=== PATIENT | female | born 1975 | race Caucasian/White ===

== ENCOUNTER 2016-10-20 05:56 | Day surgery (SDC) | payer OTHER ==
[~2016-10-20] VITALS: Ht 165.1 cm; Wt 69.9 kg
[~2016-10-20 05:56] MED LIST: CYMB1CAP4 PO; FISH1000 PO; LIPI10TA PO; LOES1TAB9 PO
[2016-10-20] MEDS ORDERED: LR 1,000 ML IV ONE (06:15)
[2016-10-20 06:35] LABS: MEAN CORPUSCULAR HGB CONC 35.2 g/dl (32.0-36.5); MEAN CORPUSCULAR VOLUME 88.1 fl (80.0-96.0); RED CELL DISTRIBUTION WIDTH 12.1 % (11.5-14.5); WHITE BLOOD COUNT 11.9 K/mm3 (4.0-10.0)
[2016-10-20] MEDS ORDERED: EMLA CREAM 5GM (LIDOCAINE/PRILOCAINE) As Ordered ONE (06:42)
[2016-10-20 06:43] LABS: CONTROL LINE HCG INT CTR LINE PRESENT
[2016-10-20] MEDS ORDERED: XANA0.5T PO (06:52)
[2016-10-20] MEDS ORDERED: KETOROLAC 60 MG/2 ML VIAL (J1885) As Ordered ONE (07:15)
[2016-10-20] MEDS ORDERED: ONDANSETRON 4MG/2ML VIAL (J2405) As Ordered ONE (07:15)
[2016-10-20] MEDS ORDERED: LIDOCAINE 2% INJ 100 MG/5 ML SDV (FOR ANES.) As Ordered ONE (07:15)
[2016-10-20] MEDS ORDERED: PROPOFOL 200 MG/20 ML VIAL As Ordered ONE (07:15)
[2016-10-20] MEDS ORDERED: dexameTHASONE 4 MG/ML 1ML VIAL (J1100) As Ordered ONE (07:15)
[2016-10-20] MEDS ORDERED: MIDAZOLAM INJ 2 MG/2 ML VIAL (J2250) As Ordered ONE ×2 (07:18→07:19)
[2016-10-20] MEDS ORDERED: fentaNYL 100 MCG/2 ML INJECTION (J3010) As Ordered ONE (07:18)
[2016-10-20] MEDS ORDERED: LIDOCAINE W/EPINEPHRINE 1% 20ML VIAL As Ordered ONE (07:22)
[2016-10-20] MEDS ORDERED: IODINE STRONG SOLN 15 ML BTL As Ordered ONE (07:22)
[2016-10-20] MEDS ORDERED: fentaNYL 100 MCG/2 ML INJECTION (J3010) IV PRN (08:45)
[2016-10-20] MEDS ORDERED: NORCO, ANEXSIA 5/325MG TABLET (HYDROcodone/ACETAMINOPHEN) PO PRN (08:45)
[2016-10-20] MEDS ORDERED: ONDANSETRON 4MG/2ML VIAL (J2405) IV PRN (08:45)
[2016-10-20] MEDS ORDERED: LR 1,000 ML IV SCH ×2 (08:45→09:00)
[2016-10-20 09:30] VITALS: BP 131/77
== END 2016-10-20 09:35 | disposition home or self-care (01) ==
LOC: M SDC 05:56
PROVIDERS: ATTEND Obstetrics & Gynecology
DX: N87.9 Dysplasia of cervix uteri, unspecified (principal); E78.5 Hyperlipidemia, unspecified; F32.9 Major depressive disorder, single episode, unspecified; R01.1 Cardiac murmur, unspecified; M54.2 Cervicalgia; F41.9 Anxiety disorder, unspecified; Z79.899 Other long term (current) drug therapy
CPT/HCPCS: 36415; 57461; 84703; 85027; 86850; 86900; 86901; 88307; J1100; J1885; J2250; J2405; J3010

== ENCOUNTER 2017-03-08 06:07 | Inpatient (IN) | payer OTHER ==
[2017-03-08] MEDS ORDERED: EMLA CREAM 5GM (LIDOCAINE/PRILOCAINE) As Ordered (06:37)
[2017-03-08 06:38] LABS: HEMATOCRIT 40.2 % (36.0-47.0); HEMOGLOBIN 13.7 g/dl (12.0-16.0); MEAN CORPUSCULAR HEMOGLOBIN 29.7 pg (27.0-33.0); MEAN CORPUSCULAR HGB CONC 34.1 g/dl (32.0-36.5); MEAN CORPUSCULAR VOLUME 87.2 fl (80.0-96.0); PLATELET COUNT, AUTOMATED 331 10^3/uL (150-450); RED BLOOD COUNT 4.61 10^6/uL (4.00-5.40); RED CELL DISTRIBUTION WIDTH 12.2 % (11.5-14.5); WHITE BLOOD COUNT 13.2 10^3/uL (4.0-10.0)
[2017-03-08] MEDS: EMLA CREAM 5GM (LIDOCAINE/PRILOCAINE) TOP (06:40)
[2017-03-08] MEDS ORDERED: LIDOCAINE 1% MDV 20ML VIAL SC (06:45)
[2017-03-08 06:52] LABS: CONTROL LINE HCG INT CTR LINE PRESENT; HCG, SERUM QUALITATIVE NEGATIVE (NEGATIVE)
[2017-03-08] MEDS: LR 1,000 ML IV ×4 (07:01→23:45)
[2017-03-08] MEDS ORDERED: fentaNYL 100 MCG/2 ML INJECTION (J3010) As Ordered ×2 (07:04)
[2017-03-08] MEDS ORDERED: MIDAZOLAM INJ 2 MG/2 ML VIAL (J2250) As Ordered (07:04)
[2017-03-08] MEDS ORDERED: METOCLOPRAMIDE INJ 10MG/2ML VIAL (J2765) As Ordered (07:07)
[2017-03-08] MEDS ORDERED: ROCURONIUM BROMIDE 50 MG/5 ML VIAL As Ordered (07:07)
[2017-03-08] MEDS ORDERED: LIDOCAINE 2% INJ 100 MG/5 ML SDV (FOR ANES.) As Ordered (07:07)
[2017-03-08] MEDS ORDERED: KETOROLAC 60 MG/2 ML VIAL (J1885) As Ordered (07:07)
[2017-03-08] MEDS ORDERED: PROPOFOL 200 MG/20 ML VIAL As Ordered (07:07)
[2017-03-08] MEDS ORDERED: dexameTHASONE 4 MG/ML 1ML VIAL (J1100) As Ordered (07:07)
[2017-03-08] MEDS ORDERED: ONDANSETRON 4MG/2ML VIAL (J2405) As Ordered (07:08)
[2017-03-08] MEDS ORDERED: SCOPOLAMINE 1MG TRANSDERMAL PATCH As Ordered (07:16)
[2017-03-08] MEDS: SCOPOLAMINE 1MG TRANSDERMAL PATCH TOP (07:20)
[2017-03-08] MEDS: CEFAZOLIN SOD 1 GM in APPROPRIATE DILUENT 1 EA IV (07:58)
[2017-03-08] MEDS ORDERED: HYDROmorphone HCL 2 MG/ML 1ML VIAL (J1170) As Ordered (08:32)
[2017-03-08] MEDS ORDERED: NEOSTIGMINE 10 MG/10 ML VIAL (J2710) As Ordered (09:13)
[2017-03-08] MEDS ORDERED: GLYCOPYRROLATE INJ 0.2 MG/ML 2 ML VIAL As Ordered (09:13)
[2017-03-08] MEDS: METHYLENE BLUE 0.5% (5MG/ML) 10 ML AMP (PROVAYBLUE)(Q9968 PER 1MG) As Ordered (09:18)
[2017-03-08] MEDS: BUPIVACAINE HCL 0.25% 30 ML VIAL As Ordered (09:34)
[2017-03-08] MEDS ORDERED: fentaNYL 100 MCG/2 ML INJECTION (J3010) IV (10:15)
[2017-03-08] MEDS ORDERED: ONDANSETRON 4MG/2ML VIAL (J2405) IV ×2 (10:15→11:45)
[2017-03-08] MEDS ORDERED: PROMETHAZINE 25 MG SUPP PR (11:45)
[2017-03-08] MEDS ORDERED: PERCOCET 5MG/325MG TAB PO (11:45)
[2017-03-08] MEDS: KETOROLAC 30 MG/ML VIAL (J1885) IV ×2 (13:54→19:07)
[2017-03-08] MEDS: PERCOCET 5MG/325MG TAB PO ×2 (14:18→21:49)
[2017-03-08] MEDS: DOCUSATE SODIUM 100 MG CAP PO ×2 (14:24→21:48)
[2017-03-08] MEDS: OMEGA-3 1050MG CAPSULE PO (21:47)
[2017-03-08] MEDS: DULoxetine 20 MG CAP (CYMBALTA) PO (21:47)
[2017-03-09] MEDS: KETOROLAC 30 MG/ML VIAL (J1885) IV ×2 (01:36→07:31)
[2017-03-09] MEDS: LR 1,000 ML IV (03:40)
[2017-03-09 07:17] LABS: BASO % 0.2 % (0.0-1.0); EOS % 0.1 % (0.0-3.0); HEMATOCRIT 33.7 % (36.0-47.0); IMMATURE GRANULOCYTE # 0.1 10^3/uL (0-0); IMMATURE GRANULOCYTE % 0.4 % (0-0); LYMPH # 4.3 10^3/uL (1.5-4.5); LYMPH % 24.4 % (24.0-44.0); MEAN CORPUSCULAR HEMOGLOBIN 29.4 pg (27.0-33.0); MEAN CORPUSCULAR HGB CONC 33.5 g/dl (32.0-36.5); MEAN CORPUSCULAR VOLUME 87.8 fl (80.0-96.0); MONO % 5.6 % (0.0-5.0); NEUTROPHILS # 12.3 10^3/uL (1.8-7.7); NEUTROPHILS % 69.3 % (36.0-66.0); PLATELET COUNT, AUTOMATED 265 10^3/uL (150-450); RED BLOOD COUNT 3.84 10^6/uL (4.00-5.40); WHITE BLOOD COUNT 17.8 10^3/uL (4.0-10.0)
[2017-03-09 07:19] LABS: HEMOGLOBIN 11.3 g/dl (12.0-16.0)
[2017-03-09] MEDS: DOCUSATE SODIUM 100 MG CAP PO (08:40)
[2017-03-09] MEDS: INFLUENZA QUADRIVALENT PF VACCINE 0.5ML SYRINGE (90686) IM (08:44)
[2017-03-09] MEDS ORDERED: IBUPROFEN 800 MG TAB PO (15:00)
== END 2017-03-09 09:40 | disposition home or self-care (01) | DRG 741 ==
LOC: M OR 06:07 → M PED 11:10
PROC: 0UT94ZZ Resection of Uterus, Percutaneous Endoscopic Approach (ICD-10-PCS; principal; 2017-03-08 07:30)
PROC: 0UTC4ZZ Resection of Cervix, Percutaneous Endoscopic Approach (ICD-10-PCS; 2017-03-08 07:30)
PROC: 0UT74ZZ Resection of Bilateral Fallopian Tubes, Percutaneous Endoscopic Approach (ICD-10-PCS; 2017-03-08 07:30)
DX: D06.9 Carcinoma in situ of cervix, unspecified (principal)

== ENCOUNTER 2017-07-10 20:19 | Emergency (ER) | payer OTHER ==
[2017-07-10] MEDS: ADACEL/BOOSTRIX VACCINE (DIPHTH/PERTUSS/ACELL/TETANUS)0.5ML SYR (90715) IM (23:00)
== END 2017-07-10 23:40 | disposition home or self-care (01) ==
LOC: M ED 23:40
DX: S91.332A Puncture wound without foreign body, left foot, initial encounter (principal); W45.8XXA Other foreign body or object entering through skin, initial encounter; Y92.009 Unspecified place in unspecified non-institutional (private) residence as the place of occurrence of the external cause; E78.5 Hyperlipidemia, unspecified; F33.9 Major depressive disorder, recurrent, unspecified; F41.9 Anxiety disorder, unspecified; Z79.899 Other long term (current) drug therapy
CPT/HCPCS: 90471

== ENCOUNTER → 2017-08-11 | Outpatient (CLI) | payer OTHER | LOC: M WUC 18:37 | DX: M79.671 Pain in right foot (principal) | CPT/HCPCS: 73650 ==

== ENCOUNTER 2017-10-08 15:10 | Emergency (ER) | payer OTHER ==
[2017-10-08] MEDS: ONDANSETRON 4 MG ORAL DISINTEGRATING TAB (Q0162 PER 1MG) PO (16:21)
== END 2017-10-08 17:58 | disposition home or self-care (01) ==
LOC: M ED 15:10
DX: S22.42XA Multiple fractures of ribs, left side, initial encounter for closed fracture (principal); S09.90XA Unspecified injury of head, initial encounter; V86.55XA Driver of 3- or 4- wheeled all-terrain vehicle (ATV) injured in nontraffic accident, initial encounter; Y92.89 Other specified places as the place of occurrence of the external cause; Z79.899 Other long term (current) drug therapy
CPT/HCPCS: Q0162

== ENCOUNTER 2017-10-09 10:53 | Emergency (ER) | payer OTHER | END 2017-10-09 11:34 | disposition home or self-care (01) | LOC: M ED 10:53 | DX: Z04.1 Encounter for examination and observation following transport accident (principal); F07.81 Postconcussional syndrome; S22.42XA Multiple fractures of ribs, left side, initial encounter for closed fracture; V86.55XA Driver of 3- or 4- wheeled all-terrain vehicle (ATV) injured in nontraffic accident, initial encounter; Y92.89 Other specified places as the place of occurrence of the external cause; F41.9 Anxiety disorder, unspecified; F33.9 Major depressive disorder, recurrent, unspecified; Z79.899 Other long term (current) drug therapy | CPT/HCPCS: 99283 ==

== ENCOUNTER → 2018-01-22 | Outpatient (CLI) | payer OTHER | LOC: M WUC 12:54 | DX: M25.512 Pain in left shoulder (principal) | CPT/HCPCS: 73030 ==

== ENCOUNTER → 2018-03-24 | Outpatient (REF) | payer OTHER ==
[~2018-03-24] MED LIST changes: +COLA100C5 PO; +MOTR200T44 PO; +MULT1TAB10 PO; +PERC5TAB12 PO; +XANA0.5T PO; +ZOFR4TAB14 PO
== END ==
LOC: M SFHCLERA 15:16
PROVIDERS: ATTEND Physician Assistant
DX: J02.9 Acute pharyngitis, unspecified (principal)